=== PATIENT | female | born 1965 | race Two or more races ===

== ENCOUNTER 2018-06-19 15:42 | Emergency (ER) | payer SELFPAY ==
[~2018-06-19] VITALS: Ht 157.5 cm; Wt 104.3 kg
[2018-06-19] MEDS: MECLIZINE HCL 12.5 MG TABLET. PO ONE (19:11)
[2018-06-19] MEDS: ONDANSETRON PF 4 MG/2 ML VIAL. IV ONE (19:11)
[2018-06-19 19:29] LABS: BILIRUBIN,URINE NEGATIVE (NEG); CLARITY,URINE CLOUDY; COLOR,URINE YELLOW; NITRITE,URINE NEGATIVE (NEG); PROTEIN,URINE NEGATIVE (NEG-TRACE); UROBILINOGEN,URINE 0.2 mg/dL (0.2 mg/dL)
[2018-06-19 19:32] LABS: BASO # 0.1 x10^3/uL (0.0-0.2); BASO % 1 % (0-3); EOS # 0.1 x10^3/uL (0.0-0.7); EOS % 2 % (0-3); HEMATOCRIT 43.5 % (36.0-47.0); HEMOGLOBIN 14.4 g/dL (12.0-15.5); LYMPH # 2.8 x10^3/uL (1.0-4.8); LYMPH % 36 % (24-48); MEAN CORPUSCULAR HEMOGLOBIN 30 pg (25-35); MEAN CORPUSCULAR HGB CONC 33 g/dL (31-37); MEAN CORPUSCULAR VOLUME 91 fL (79-100); MONO # 0.5 x10^3/uL (0.0-1.1); MONO % 7 % (0-9); NEUT # 4.4 x10^3uL (1.8-7.7); NEUT % 55 % (31-73); PLATELET COUNT 255 x10^3/uL (140-400); RED BLOOD COUNT 4.79 x10^6/uL (3.50-5.40); RED CELL DISTRIBUTION WIDTH 13.6 % (11.5-14.5); WHITE BLOOD COUNT 7.9 x10^3/uL (4.0-11.0)
[2018-06-19 19:34] LABS: AMPHETAMINE/METHAMPHETAMINE NEG (NEG); BARBITURATES NEG (NEG); BENZODIAZEPINES NEG (NEG); CANNABINOIDS NEG (NEG); COCAINE NEG (NEG); METHADONE NEG (NEG); OPIATES NEG (NEG); PHENCYCLIDINE NEG (NEG)
[2018-06-19 19:34] LABS: CALCIUM 9.7 mg/dL (8.5-10.1); CREATININE 0.7 mg/dL (0.6-1.0); GFR 87.5; POTASSIUM 3.5 mmol/L (3.5-5.1)
--- NOTE | 2018-06-19 19:37 | RAD ---
CT HEAD WO CONTRAST History: Severe headache Comparison: None. Technique: Noncontrast CT imaging was performed of the head. Exposure: One or more of the following individualized dose reduction techniques were utilized for this examination: 1. Automated exposure control 2. Adjustment of the mA and/or kV according to patient size 3. Use of iterative reconstruction technique. Findings: No acute extra-axial or parenchymal hemorrhage is identified. There is no significant intra-axial mass effect, midline shift, or extra-axial fluid collection. The morin-white differentiation of the major vascular territories is preserved. The ventricles, sulci, and cisterns are within normal limits in size and configuration. The mastoid air cells and the visualized paranasal sinuses are aerated. No acute calvarial abnormality is identified. Impression: 1. No acute intracranial abnormality is identified. Electronically signed by: Sukhjinder Mcintyre MD (06/19/2018 7:34 PM) [facility]
[2018-06-19 19:39] LABS: SQUAMOUS EPITHELIAL CELL,UR MANY /LPF
[2018-06-19 19:40] LABS: BACTERIA,URINE 0 /HPF (0-FEW); RBC,URINE 0 /HPF (0-2)
[2018-06-19 19:45] LABS: ALBUMIN 3.8 g/dL (3.4-5.0); ALBUMIN/GLOBULIN RATIO 1.1 (1.0-1.7); MAGNESIUM 2.2 mg/dL (1.8-2.4); TOTAL BILIRUBIN 0.5 mg/dL (0.2-1.0); TOTAL PROTEIN 7.3 g/dL (6.4-8.2)
[2018-06-19] MEDS: FUROSEMIDE 40 MG/4 ML VIAL. IVP ONE (20:54)
[2018-06-19] MEDS ORDERED: HYDR12.575 PO (22:14)
[2018-06-19] MEDS ORDERED: ONDA4TAB12 PO (22:14)
[2018-06-19] MEDS ORDERED: MECL25TA3 PO (22:14)
--- NOTE | 2018-06-19 22:14 | PHYS DOC ---
Past Medical History Past Medical History: No Pertinent History Past Surgical History: Cholecystectomy, Alcohol Use: None Drug Use: None Adult General Chief Complaint Chief Complaint: HYPERTENSION HPI HPI Patient is a 52 year old female who presents to the ED today to be evaluated for dizziness hypertension and bilateral lower extremity swelling. Patient states she's had intermittent episodes of dizziness for a couple days as well as a mild frontal headache. She states the dizziness is only when she is up and moving and occasionally. She states she believes her blood pressure is elevated , she went to see a doctor in a local clinic and they sent her to the ED to be evaluated. She denies any previous history of hypertension. Denies any chest pain or shortness of breath. Review of Systems Review of Systems Constitutional: Denies fever or chills [] Eyes: Denies change in visual acuity, redness, or eye pain [] HENT: Denies nasal congestion or sore throat [] Respiratory: Denies cough or shortness of breath [] Cardiovascular: No additional information not addressed in HPI [] GI: Denies abdominal pain, nausea, vomiting, bloody stools or diarrhea [] : Denies dysuria or hematuria [] Musculoskeletal: Denies back pain or joint pain [] Integument: Reports lower extremity edema. Denies rash or skin lesions [] Neurologic: Reports headache and dizziness, denies focal weakness or sensory changes [] All other systems were reviewed and found to be within normal limits, except as documented in this note. Current Medications Current Medications Current Medications Medications (Trade) Dose Ordered Sig/Balwinder Start Time Stop Time Status Last Admin Dose Admin Furosemide (Lasix) 40 mg 1X ONCE 06/19/18 20:45 06/19/18 20:46 DC 06/19/18 20:54 40 MG Meclizine HCl (Antivert) 25 mg 1X ONCE 06/19/18 18:45 06/19/18 18:46 DC 06/19/18 19:11 25 MG Ondansetron HCl (Zofran) 4 mg 1X ONCE 06/19/18 18:45 06/19/18 18:46 DC 06/19/18 19:11 4 MG Allergies Allergies Allergies Coded Allergies Type Severity Reaction Last Updated Verified No Known Drug Allergies 06/19/18 No Physical Exam Physical Exam Constitutional: Well developed, well nourished, no acute distress, non-toxic appearance. [] HENT: Normocephalic, atraumatic, bilateral external ears normal, oropharynx moist, no oral exudates, nose normal. [] Eyes: PERRLA, EOMI, conjunctiva normal, no discharge. [] Neck: Normal range of motion, no tenderness, supple, no stridor. [] Cardiovascular:Heart rate regular rhythm, no murmur [] Lungs & Thorax: Bilateral breath sounds clear to auscultation [] Abdomen: Bowel sounds normal, soft, no tenderness, no masses, no pulsatile masses. [] Skin: Warm, dry, no erythema, no rash. [] Back: No tenderness, no CVA tenderness. [] Extremities: No tenderness, no cyanosis, no clubbing, ROM intact, +2 bilateral pedal edema Neurologic: Alert and oriented X 3, normal motor function, normal sensory function, no focal deficits noted. Cranial nerves II through XII intact Psychologic: Affect normal, judgement normal, mood normal. [] Current Patient Data Vital Signs Vital Signs Date Time Temp Pulse Resp B/P (MAP) Pulse Ox O2 Delivery O2 Flow Rate FiO2 06/19/18 20:53 60 18 100 06/19/18 18:44 97.8 160/108 (125) Room Air 97.8 Lab Values Laboratory Tests Test 06/19/18 19:09 06/19/18 19:12 Urine Collection Type Unknown Urine Color Yellow Urine Clarity Cloudy Urine pH 6.0 Urine Specific Lyman 1.015 Urine Protein Negative mg/dL (NEG-TRACE) Urine Glucose (UA) Negative mg/dL (NEG) Urine Ketones (Stick) Negative mg/dL (NEG) Urine Blood Negative (NEG) Urine Nitrite Negative (NEG) Urine Bilirubin Negative (NEG) Urine Urobilinogen Dipstick 0.2 mg/dL (0.2 mg/dL) Urine Leukocyte Esterase Small (NEG) Urine RBC 0 /HPF (0-2) Urine WBC 11-20 /HPF (0-4) Urine Squamous Epithelial Cells Many /LPF Urine Transitional Epithelial Cells Occ /LPF Urine Renal Epithelial Cells Occ /LPF Urine Bacteria 0 /HPF (0-FEW) Urine Mucus Marked /LPF Urine Opiates Screen Neg (NEG) Urine Methadone Screen Neg (NEG) Urine Barbiturates Neg (NEG) Urine Phencyclidine Screen Neg (NEG) Urine Amphetamine/Methamphetamine Neg (NEG) Urine Benzodiazepines Screen Neg (NEG) Urine Cocaine Screen Neg (NEG) Urine Cannabinoids Screen Neg (NEG) Urine Ethyl Alcohol Neg (NEG) White Blood Count 7.9 x10^3/uL (4.0-11.0) Red Blood Count 4.79 x10^6/uL (3.50-5.40) Hemoglobin 14.4 g/dL (12.0-15.5) Hematocrit 43.5 % (36.0-47.0) Mean Corpuscular Volume 91 fL (79-100) Mean Corpuscular Hemoglobin 30 pg (25-35) Mean Corpuscular Hemoglobin Concent 33 g/dL (31-37) Red Cell Distribution Width 13.6 % (11.5-14.5) Platelet Count 255 x10^3/uL (140-400) Neutrophils (%) (Auto) 55 % (31-73) Lymphocytes (%) (Auto) 36 % (24-48) Monocytes (%) (Auto) 7 % (0-9) Eosinophils (%) (Auto) 2 % (0-3) Basophils (%) (Auto) 1 % (0-3) Neutrophils # (Auto) 4.4 x10^3uL (1.8-7.7) Lymphocytes # (Auto) 2.8 x10^3/uL (1.0-4.8) Monocytes # (Auto) 0.5 x10^3/uL (0.0-1.1) Eosinophils # (Auto) 0.1 x10^3/uL (0.0-0.7) Basophils # (Auto) 0.1 x10^3/uL (0.0-0.2) Sodium Level 141 mmol/L (136-145) Potassium Level 3.5 mmol/L (3.5-5.1) Chloride Level 103 mmol/L (98-107) Carbon Dioxide Level 31 mmol/L (21-32) Anion Gap 7 (6-14) Blood Urea Nitrogen 12 mg/dL (7-20) Creatinine 0.7 mg/dL (0.6-1.0) Estimated GFR (Cockcroft-Gault) 87.5 BUN/Creatinine Ratio 17 (6-20) Glucose Level 120 mg/dL (70-99) H Calcium Level 9.7 mg/dL (8.5-10.1) Magnesium Level 2.2 mg/dL (1.8-2.4) Total Bilirubin 0.5 mg/dL (0.2-1.0) Aspartate Amino Transferase (AST) 21 U/L (15-37) Alanine Aminotransferase (ALT) 28 U/L (14-59) Alkaline Phosphatase 72 U/L (46-116) Creatine Kinase 69 U/L (26-192) Creatine Kinase MB (Mass) 0.6 ng/mL (0.0-3.6) Creatine Kinase MB Relative Index 0.9 % (0-4) Troponin I Quantitative < 0.017 ng/mL (0.000-0.055) XZ-Uru-T-Type Natriuretic Peptide 123 pg/mL (0-124) Total Protein 7.3 g/dL (6.4-8.2) Albumin 3.8 g/dL (3.4-5.0) Albumin/Globulin Ratio 1.1 (1.0-1.7) Lipase 105 U/L (73-393) Laboratory Tests 06/19/18 19:12 Laboratory Tests 06/19/18 19:12 EKG EKG [] Radiology/Procedures Radiology/Procedures [] Course & Med Decision Making Course & Med Decision Making Pertinent Labs and Imaging studies reviewed. (See chart for details) This is a 52-year-old female patient presenting to the ED today from home complaining of headaches, dizziness, lower extremity swelling and concerned she could have high blood pressure. Blood pressure arrival to the ED is 160/108 with a heart rate of 81. CT of the head is negative, EKG was negative, labs are negative. She was given Lasix in the ED, blood pressures come down to 120s over 80s. Patient will be discharged to home with HCTz and instructed to follow-up with her PCP on Saturday . Barbaraon Disclaimer Dragon Disclaimer This electronic medical record was generated, in whole or in part, using a voice recognition dictation system. Departure Departure Impression: Primary Impression: Elevated blood pressure reading Additional Impressions: Headache Dizziness Disposition: HOME, SELF-CARE Condition: STABLE Referrals: UNKNOWN PCP NAME (PCP) follow up with your doctor tomorrow Patient Instructions: Headache, FAQs, Hypertension Additional Instructions: You were evaluated in the emergency room, we highly recommend you follow-up with your doctor on Saturday buy compression stockings and wear them which will reduce the swelling in your legs. You can take Tylenol or Motrin for your headaches. Scripts Meclizine Hcl (MECLIZINE HCL) 25 Mg Tablet 1 TAB PO TID, #30 TAB Prov: KAITY CASTELLANO APRN 06/19/18 Ondansetron (ONDANSETRON ODT) 4 Mg Tab.rapdis 1 TAB PO PRN Q6-8HRS, #16 TAB Prov: KAITY CASTELLANO APRN 06/19/18 Hydrochlorothiazide (HYDROCHLOROTHIAZIDE CAPSULE ) 12.5 Mg Capsule 12.5 MG PO DAILY for DIURETIC, #6 CAP 0 Refills Prov: KAITY CASTELLANO APRN 06/19/18 Problem Qualifiers Additional Impressions: Headache Headache type: unspecified Headache chronicity pattern: unspecified pattern Intractability: not intractable Qualified Codes: R51 - Headache KAIAYMAILETHKAITY FINCH Jun 19, 2018 22:14
[2018-06-19 22:40] VITALS: BP 121/62
--- NOTE | 2018-06-20 08:15 | RAD ---
PROCEDURE: PORTABLE CHEST 1V CLINICAL INDICATION: dizziness HTN COMPARISON: None FINDINGS: No pneumothorax identified. Cardiac and mediastinal contours unremarkable. No pulmonary consolidation or acute airspace disease. No acute osseous abnormalities identified. IMPRESSION: No pulmonary consolidation or acute airspace disease. Electronically signed by: Trace Townsend DO (06/20/2018 8:12 AM) [facility]
--- NOTE | 2018-06-20 08:43 | EKG ---
[facility] [address] [place] [address] Test Date: 2018-06-19 Test Time: 19:15:23 Pat Name: SHEA MARIANO Department: Room: Gender: F Material Planner: : [id number] Requested By: KAITY CASTELLANO Order Number: [id number] Reading MD: Sai Flores MD Measurements Intervals Independence Rate: 72 P: 12 MS: 148 QRS: -11 QRSD: 94 T: 18 QT: 388 QTc: 431 Interpretive Statements SINUS RHYTHM RBBB NON-SPECIFIC ST/T CHANGES Electronically Signed On 06-20-2018 17:29:37 CDT by Sai Flores MD
== END 2018-06-19 22:30 | disposition home or self-care (01) ==
LOC: ER 15:42
DX: R03.0 Elevated blood-pressure reading, without diagnosis of hypertension (principal); R42 Dizziness and giddiness; R51 Headache; R60.0 Localized edema; Z98.890 Other specified postprocedural states; Z90.49 Acquired absence of other specified parts of digestive tract
CPT/HCPCS: 36415; 70450; 71045; 80053; 80307; 81001; 82553; 83690; 83735; 83880; 84484; 85025; 87086; 93005; 96374; 96375; 99284; J1940; J2405; J8597